=== PATIENT | male | born 1995 | race African-American/Black ===

== ENCOUNTER 2018-09-25 12:44 | Emergency (ER) | payer OTHER ==
[~2018-09-25] VITALS: Ht 170.2 cm; Wt 59.0 kg
[2018-09-25] MEDS ORDERED: NORCO 5-325 TA1 EACH PO (13:55)
[2018-09-25] MEDS ORDERED: PENICILLIN V P500 MG PO (13:55)
[2018-09-25 14:12] VITALS: BP 109/68
== END 2018-09-25 14:19 | disposition home or self-care (01) ==
LOC: ER 12:44
DX: G43.909 Migraine, unspecified, not intractable, without status migrainosus (principal); K08.89 Other specified disorders of teeth and supporting structures